=== PATIENT | female | born 1975 | race Caucasian/White ===

== ENCOUNTER 2020-03-22 15:42 | Emergency (ER) | payer MEDICAID ==
[2020-03-22] MEDS ORDERED: Ibuprofen 800 MG Tab PO ONE (16:04)
--- NOTE | 2020-03-22 16:57 | EDM.PDOC ---
ED HPI GENERAL MEDICAL PROBLEM - General Chief Complaint: Upper Extremity Injury/Pain Stated Complaint: L HAND INJRY Time Seen by Provider: 03/22/20 15:55 Source of Information: Reports: Patient History Limitations: Reports: No Limitations - History of Present Illness INITIAL COMMENTS - FREE TEXT/NARRATIVE: Patient presented to the ED because of a left hand/thumb injury. She tripped and fell and landed on her left hand. She has pain and swell over the base of the left thumb. left hand Pain Score (Numeric/FACES): 5 - Related Data Allergies Allergy/AdvReac Type Severity Reaction Status Date / Time codeine Allergy Hyperactivi Verified 03/22/20 15:59 ty Home Meds: Home Meds . [Unable to Verify Home Med List] 03/22/20 [History] Past Medical History HEENT History: Reports: Allergic Rhinitis Cardiovascular History: Reports: High Cholesterol, Hypertension Psychiatric History: Reports: Anxiety, Depression Endocrine/Metabolic History: Reports: Diabetes, Type II - Past Surgical History HEENT Surgical History: Reports: Tonsillectomy GI Surgical History: Reports: Appendectomy Female Surgical History: Reports: Tubal Ligation Social & Family History - Tobacco Use Smoking Status *Q: Current Every Day Smoker Years of Tobacco use: 25 Packs/Tins Daily: 1 - Recreational Drug Use Recreational Drug Use: No Review of Systems - Review of Systems Review Of Systems: See Below Constitutional: Reports: No Symptoms Ears: Reports: No Symptoms Nose: Reports: No Symptoms Mouth/Throat: Reports: No Symptoms Respiratory: Reports: No Symptoms Cardiovascular: Reports: No Symptoms Genitourinary: Reports: No Symptoms Musculoskeletal: Reports: Hand Pain, Joint Pain ED EXAM, GENERAL - Physical Exam Exam: See Below Exam Limited By: No Limitations General Appearance: Alert, No Apparent Distress Ears: Normal External Exam, Normal Canal, Hearing Grossly Normal Nose: Normal Inspection, Normal Mucosa, No Blood Throat/Mouth: Normal Inspection, Normal Lips, Normal Teeth, Normal Gums Head: Atraumatic, Normocephalic Neck: Normal Inspection, Supple, Non-Tender, Full Range of Motion Respiratory/Chest: No Respiratory Distress, Lungs Clear, Normal Breath Sounds Cardiovascular: Normal Peripheral Pulses, Regular Rate, Rhythm, No Edema GI/Abdominal: Normal Bowel Sounds, Soft, Non-Tender, No Organomegaly Back Exam: Normal Inspection, Full Range of Motion Extremities: Normal Inspection, Limited Range of Motion, Other (tenderness and swelling base of left thumb) Course - Vital Signs Text/Narrative:: xray-neg ibuprofen 800 mg po x1 Last Recorded V/S: Last Vital Signs Temp 36.2 C 03/22/20 15:50 Pulse 86 03/22/20 15:50 Resp 18 03/22/20 15:50 BP 147/81 H 03/22/20 15:50 Pulse Ox 100 03/22/20 15:50 - Orders/Labs/Meds Orders: Active Orders 24 hr Category Date Time Status Hand Comp Min 3V Lt [CR] Stat Exams 03/22/20 16:05 Taken Meds: Medications Discontinued Medications Generic Name Dose Route Start Last Admin Trade Name Rigoberto PRN Reason Stop Dose Admin Ibuprofen 800 mg 03/22/20 16:04 03/22/20 16:15 Motrin PO 03/22/20 16:05 800 mg ONETIME ONE Administration Departure - Departure Time of Disposition: 16:55 Disposition: Home, Self-Care 01 Condition: Good Clinical Impression: Finger sprain, Avulsion fracture of bone - Discharge Information Instructions: Thumb Sprain, Crush Injury of the Hand, [id number] Referrals: Toni Hilliard PA [Primary Care Provider] - Forms: ED Department Discharge Additional Instructions: Please read discharge instructions on avulsion and sprain Apply ice,elevate Take ibuprofen 800 mg with tylenol 1000 mg every 8 hoursas needed for pain We will call you if there is any changes on your xray reading Sepsis Event Note (ED) - Evaluation Sepsis Screening Result: No Definite Risk - Focused Exam Vital Signs: Vital Signs Temp Pulse Resp BP Pulse Ox 03/22/20 15:50 36.2 C 86 18 147/81 H 100 - My Orders Last 24 Hours: My Active Orders 03/22/20 16:05 Hand Comp Min 3V Lt [CR] Stat - Assessment/Plan Last 24 Hours: My Active Orders 03/22/20 16:05 Hand Comp Min 3V Lt [CR] Stat
--- NOTE | 2020-03-23 10:07 | CR ---
INDICATION: Left thumb injury. LEFT HAND: Three views of the left hand were obtained 03/22/20 - no comparison. Mild hypertrophic degenerative changes are noted at the first metacarpophalangeal joint. Bone density appeared to be normal. No acute fracture or dislocation was identified. If symptoms persist - if occult fracture site is suspected clinically, reexamination in 10-14 days may be helpful. MTDD
== END 2020-03-22 17:05 | disposition home or self-care (01) ==
LOC: FB.ED 15:42
DX: S62.502A Fracture of unspecified phalanx of left thumb, initial encounter for closed fracture (principal); I10 Essential (primary) hypertension; E11.9 Type 2 diabetes mellitus without complications; F17.210 Nicotine dependence, cigarettes, uncomplicated; Z88.5 Allergy status to narcotic agent; W01.0XXA Fall on same level from slipping, tripping and stumbling without subsequent striking against object, initial encounter
CPT/HCPCS: 73130; 99283; A9270

== ENCOUNTER 2023-05-03 19:11 | Emergency (ER) | payer BC | END 2023-05-03 22:40 | disposition home or self-care (01) | LOC: FB.ED 19:11 | DX: J34.89 Other specified disorders of nose and nasal sinuses (principal); I10 Essential (primary) hypertension; F17.210 Nicotine dependence, cigarettes, uncomplicated; Z88.5 Allergy status to narcotic agent; Z79.899 Other long term (current) drug therapy; Z79.84 Long term (current) use of oral hypoglycemic drugs | CPT/HCPCS: 36415; 70450; 86335; 99283 ==